=== PATIENT | male | born 1970 | race Caucasian/White ===

== ENCOUNTER 2022-04-25 12:05 | Emergency (ER) | payer BC, SELFPAY ==
[2022-04-25 12:35] VITALS: BP 139/77; PULSE 62; RESP 20; TEMP 36.4; O2SAT 98
--- NOTE | 2022-04-25 12:46 | ED.WOUNDLAC ---
HPI - Wound/Laceration General Chief Complaint: Skin/Abscess/Foreign Body Stated Complaint: Rash Time Seen by Provider: 04/25/22 12:46 Source: patient Mode of arrival: ambulatory Limitations: no limitations History of Present Illness HPI narrative: 52-year-old male presented for complaint of Rash for 3 days. Endorses redness to chest and upper arms. States he felt like a 'sunburn' to the chest upon returning home from [facility] 4 days ago. Since then he has noticed increasing redness and blistering to the site. States it feels similar to shingles he has had in the past. Currently reports blisters have crusted over and denies significant pain. The lesions to the upper arms are red but do not appear similar to the chest. He denies nausea, vomiting, diarrhea, fevers or chills. denies lip, tongue, throat swelling/ itching, shortness of breath or wheezing. Because he was on vacation he endorses changes to food, detergent, activity etc.. He denies any other lesions to the body. Has not taken anything for symptoms. Related Data Allergies Allergy/AdvReac Type Severity Reaction Status Date / Time No Known Allergies Allergy Verified 04/25/22 12:46 Review of Systems Review of Systems: CONSTITUTIONAL: Denies body aches, fever, chills, or sweats. EYES: Denies visual changes, redness, or discharge. ENT: Denies rhinorrhea, congestion CARDIOVASCULAR: Denies chest pain, palpitations, or edema. RESPIRATORY: Denies cough or dyspnea. GASTROINTESTINAL: Denies abdominal pain, nausea, vomiting, or diarrhea. SKIN: per HPI MUSCULOSKELETAL: Denies back pain, joint pain, or myalgia. NEUROLOGIC: Denies headache, numbness, tingling, or weakness. PMFSH Comments At time of signature, I have reviewed and agree with nursing past medical, surgical, social and family history unless otherwise noted. Please see nursing chart for further information. There is no relevant family history pertinent to the presenting complaint Exam Narrative: GENERAL: Well-appearing HEAD: Normocephalic, atraumatic. EYES: conjunctivae clear, and EOMI. ENT: Mucous membranes moist. Oropharynx without edema, erythema or lesions. NECK: Supple. No lymphadenopathy CHEST: Clear to auscultation. HEART: Regular rate and rhythm. SKIN: Warm, dry. Large area of erythema over the left lower chest/ abdominal wall. Approximately 3 cm diameter dried blistered area at the center. Site is nontender, No active drainage. Bilateral upper arms with flat erythematous areas, no vesicles or blistering noted, nontender. NEURO: Alert and oriented x3. Course Course Emergency Course: Patient is aware of diagnosis, understands and agrees to treatment plan. Anticipatory guidance given. Patient agrees to follow-up as directed and is aware of reasons to seek care at the emergency department. Portions of this record may have been created with voice recognition software Level of Care: Express Care Visit Vital Signs Vital signs: Reviewed MDM - Wound/Laceration MDM Narrative Medical decision making narrative: Advised supportive measures For zoster and signs/symptoms to go to the ER. Pt is appropriate for outpt treatment and f/u. Does not appear at this time to be erythema multiforme, bullous, SJS, TEN; patient looks well, afebrile; appropriate for initial outpatient treatment; discussed the importance of follow-up, patient agrees. No soft palate or uvula edema, no tongue, lip edema or other mucosal involvement, no respiratory compromise, no stridor, no wheezing, no wheezing, no history of syncope, no hypotension, no nausea, vomiting, or diarrhea. Instructed patient to go to nearest ER immediately for any worsening symptoms including but not limited to: fever, spreading rash, pain, sore throat, headache, dizziness, chest pain, trouble breathing, or any symptoms concerning to the patient. Differential Diagnosis Differential diagnosis: Likely other ( cellulitis, zoster, dermatitis, eczema
== END 2022-04-25 13:02 | disposition home or self-care (01) ==
PROVIDERS: Emergency Provider Nurse Practitioner Family
DX: B02.9 Zoster without complications (principal)
CPT/HCPCS: 99203; G0463